=== PATIENT | female | born 1960 | race Native Hawaiian/Other Pacific Islander ===

== ENCOUNTER 2018-10-24 07:17 | Day surgery (SDC) | payer MEDICARE ==
[2018-10-19 14:50] VITALS: BMI 26.5
[2018-10-24] MEDS ORDERED: Sodium Chloride 0.9% 1,000 ML IV SCH (09:00)
[2018-10-24] MEDS ORDERED: Propofol 10 mg/ml Inj (20 ML) ONE (09:05)
[2018-10-24 10:06] VITALS: TEMP 98
[2018-10-24 10:26] VITALS: O2SAT 98
[2018-10-24 14:46] VITALS: BP 114/67; PULSE 63; RESP 16
== END 2018-10-24 11:30 | disposition home or self-care (01) ==
LOC: ENDO 07:17
PROVIDERS: ATTEND Internal Medicine Gastroenterology
DX: Z12.11 Encounter for screening for malignant neoplasm of colon (principal); K62.1 Rectal polyp; E11.9 Type 2 diabetes mellitus without complications; I10 Essential (primary) hypertension; K64.9 Unspecified hemorrhoids
CPT/HCPCS: 45384; 82948; 88305; J2704; J7030